=== PATIENT | female | born 1955 | race Caucasian/White ===

== ENCOUNTER 2017-12-07 08:06 | Emergency (ER) | payer OTHER, SELFPAY ==
[2017-12-07 08:07] VITALS: BP 153/74; PULSE 69; RESP 18; TEMP 36.6; O2SAT 95; BMI 30.7
--- NOTE | 2017-12-07 08:12 | ED.RN ---
pt to room. called for ekg from triage
--- NOTE | 2017-12-07 08:20 | ED.VISSUMM ---
- ER Visit Summary Date of Service: 12/07/17 Chief Complaint: Strange feeling History of Present Illness: The patient is a 61 F past medical history of hypothyroidism. Patient had an episode Tuesday morning at work and then twice today. She says she just has this strange feeling come over her. Not associated with exertion. No chest pain or shortness of breath. No nausea, vomiting, diarrhea or fever. No dysuria. No melena. Currently she is symptom-free. She had 2 episodes today. She also has right arm discomfort with them. No numbness or weakness or any neurological findings or symptoms. She has never had this before. She has no recent hospitalizations. She has no recent weight loss. The first episode was at work she works at a [employer] they checked her blood pressure and blood sugar in both her fine. She denies having any palpitations or irregular, fast or slow heart rates. Physical Examination: Very well-appearing female. Vital signs are stable and afebrile. Her blood pressure is 153/74. She does not look septic or toxic. She is in no acute distress. HEENT exam unremarkable. Neck nontender no lymphadenopathy. Lungs clear to auscultation bilaterally. Heart regular rate and rhythm rate of about 70 no murmur. Abdomen is soft and nontender normal bowel sounds no peritoneal signs. She is moving all 4 extremities. They are neurovascularly equal radial pulses. Calves are nontender without edema or cords. She has full range of motion both upper and lower extremities. Back is nontender. Skin is unremarkable. Neurologic exam is normal. She has no focal motor or sensory findings. Her NIH is 0. She has equal symmetrical paediatric physiotherapist strength. Dorsi plantar flexion are intact. Fingertip to nose within normal limits. No facial droop. Normal speech. Test Results: Chest x-ray read both by the radiologist and myself is normal. Normal cardiac silhouette and mediastinum. EKG sinus rhythm rate of 67 with absolutely no abnormalities. CBC normal. White count of 6. Hemoglobin 13. BMP normal with a gap of 8 and a creatinine of 1. Troponin normal. TSH normal at 1.9. Several repeat exams the patient is doing quite well. Emergency Department Course and Treatment: Patient with complaint of atypical episodes lasting about a minute. Was a normal exam. Treatment Plan: Patient's labs and exams were all normal. She will be discharged home to follow-up with a primary care physician. We went over all test results. Disposition: Discharge Impression: Transient episodes of uncertain etiology This note was generated with [employer] dictation software. It may contain incorrect words, spelling, and punctuation that were not noted in review of the chart prior to signing ED Disposition - Plan for ED Patient: Chief Complaint: General Illness
--- NOTE | 2017-12-07 08:22 | NURSING ---
NO OLD EKGS
--- NOTE | 2017-12-07 08:23 | ED.DCSUM_ITS ---
- ER Visit Summary Date of Service: 12/07/17 Chief Complaint: Strange feeling History of Present Illness: The patient is a 61 F past medical history of hypothyroidism. Patient had an episode Tuesday morning at work and then twice today. She says she just has this strange feeling come over her. Not associated with exertion. No chest pain or shortness of breath. No nausea, vomiting, diarrhea or fever. No dysuria. No melena. Currently she is symptom- free. She had 2 episodes today. She also has right arm discomfort with them. No numbness or weakness or any neurological findings or symptoms. She has never had this before. She has no recent hospitalizations. She has no recent weight loss. The first episode was at work she works at a [employer] they checked her blood pressure and blood sugar in both her fine. She denies having any palpitations or irregular, fast or slow heart rates. Physical Examination: Very well-appearing female. Vital signs are stable and afebrile. Her blood pressure is 153/74. She does not look septic or toxic. She is in no acute distress. HEENT exam unremarkable. Neck nontender no lymphadenopathy. Lungs clear to auscultation bilaterally. Heart regular rate and rhythm rate of about 70 no murmur. Abdomen is soft and nontender normal bowel sounds no peritoneal signs. She is moving all 4 extremities. They are neurovascularly equal radial pulses. Calves are nontender without edema or cords. She has full range of motion both upper and lower extremities. Back is nontender. Skin is unremarkable. Neurologic exam is normal. She has no focal motor or sensory findings. Her NIH is 0. She has equal symmetrical offset pressman strength. Dorsi plantar flexion are intact. Fingertip to nose within normal limits. No facial droop. Normal speech. Test Results: Chest x-ray read both by the radiologist and myself is normal. Normal cardiac silhouette and mediastinum. EKG sinus rhythm rate of 67 with absolutely no abnormalities. CBC normal. White count of 6. Hemoglobin 13. BMP normal with a gap of 8 and a creatinine of 1. Troponin normal. TSH normal at 1.9. Several repeat exams the patient is doing quite well. Emergency Department Course and Treatment: Patient with complaint of atypical episodes lasting about a minute. Was a normal exam. Treatment Plan: Patient's labs and exams were all normal. She will be discharged home to follow-up with a primary care physician. We went over all test results. Disposition: Discharge Impression: Transient episodes of uncertain etiology This note was generated with [employer] dictation software. It may contain incorrect words, spelling, and punctuation that were not noted in review of the chart prior to signing ED Disposition - Plan for ED Patient: Chief Complaint: General Illness
[2017-12-07 08:28] VITALS: O2SAT 97
[2017-12-07 08:33] LABS: Absolute Lymphocyte Count 1.28 X10^3/ul (0.83-4.51); Absolute Neutrophil Count 4.4 X10^3/uL (2.0-7.7); Basophil# 0.06 X10^3/uL; Basophil% 0.9 % (0-1); Eosinophil# 0.16 X10^3/uL; Eosinophils% 2.5 % (0-5); Hematocrit 40.2 % (37-47); Hemoglobin 13.1 g/dl (12.0-15.0); Lymphocyte # 1.28 X10^3/ul (4.0); Lymphocyte % 20.2 % (19-41); Mean Corp Hgb Conc 32.6 g/gl (32-36); Mean Corpuscular Hgb 29.8 pg (27.0-32.0); Mean Corpuscular Volume 91.6 fL (81-99); Mean Platelet Vol. 9.1 fl (6.2-12.0); Monocyte% 6.3 % (0-10); Neutrophil # 4.42 X10^3/uL (2.7-7.7); Neutrophil % 69.9 % (47-70); Platelet Count 252 K/mm3 (150-450); RBC Distribution Width CV 13.1 % (11.6-14.6); RBC Distribution Width SD 43.5 fl (35.1-43.9); Red Blood Count 4.39 M/mm3 (4.2-5.4); White Blood Count 6.3 K/mm3 (4.4-11.0)
[2017-12-07 08:37] LABS: POSITIVE COUNT NO; POSITIVE DIFFERENTIAL NO; POSITIVE MORPHOLOGY NO
[2017-12-07 09:08] LABS: Anion Gap 8 (5-15); BUN 21 mg/dL (7-18); BUN/Creat Ratio 20.6 RATIO (10-20); Chloride 105 mmol/L (98-107); Creatinine, Serum 1.02 mg/dL (0.55-1.02); EST Glomerular Filtration Rate 58 mL/min (>60); Est Glom Filt Rate - Afr Amer 71 mL/min (>60); Estimated Creatinine Clearance 52.12 ml/min; Glucose 92 mg/dL (74-106); Potassium 4.5 mmol/L (3.5-5.1); Sodium Level 138 mmol/L (136-145); Thyroid Stim Hormone (TSH) 1.94 uIU/mL (0.358-3.74)
[2017-12-07 09:12] VITALS: BP 138/75; PULSE 62; RESP 15; O2SAT 97
--- NOTE | 2017-12-07 09:22 | ED.DEP ---
ED Disposition - Plan for ED Patient: Disposition: Home or Assisted Living Chief Complaint: General Illness Referrals: Fracisco Smith [Primary Care Provider] - 1 Week Additional Instructions: Call follow-up with your doctor.
[2017-12-07 09:23] VITALS: BP 133/86; PULSE 61; RESP 15; O2SAT 97
== END 2017-12-07 09:30 | disposition home or self-care (01) ==
PROVIDERS: Emergency Provider Emergency Medicine; Family Provider Family Medicine; PCP Family Medicine
DX: R69 Illness, unspecified (principal); E03.9 Hypothyroidism, unspecified; Z79.899 Other long term (current) drug therapy
CPT/HCPCS: 71045; 80048; 84443; 84484; 85025; 93005; 99284; A4216